=== PATIENT | male | born 1970 | race Caucasian/White ===

== ENCOUNTER 2017-07-31 08:27 | Observation (INO) | payer MEDICAID ==
[~2017-07-31] VITALS: Ht 172.7 cm; Wt 72.9 kg
[~2017-07-31 08:27] MED LIST: BUPR100T11 PO; BUPR100T8 PO; MULT-750 PO; OLAN2.5T10 PO; OLAN5TAB9 PO
[2017-07-31 09:02] LABS: BASOPHILS # (AUTO) 0.06 x10^3/uL (0-0.1); BASOPHILS % (AUTO) 1 % (0-1); EOSINOPHILS # (AUTO) 0.06 x10^3/uL (0-0.4); EOSINOPHILS % (AUTO) 1 % (1-7); LYMPHOCYTES # (AUTO) 2.55 x10^3/uL (1-3.4); LYMPHOCYTES % (AUTO) 32 % (22-44); MD NO; MEAN CORPUSCULAR HEMOGLOBIN 29.5 pg (27.5-34.5); MEAN CORPUSCULAR VOLUME 86.7 fL (81-97); MEAN PLATELET VOLUME 7.9 fL (7.4-10.4); MONOCYTES # (AUTO) 0.62 x10^3/uL (0.2-0.8); MONOCYTES % (AUTO) 8 % (2-9); NEUTROPHILS # (AUTO) 4.68 x10^3/uL (1.8-6.8); NEUTROPHILS % (AUTO) 59 % (42-75); PLATELET COUNT 212 x10^3/uL (130-400); RED BLOOD COUNT 5.34 x10^6/uL (4.38-5.82); RED CELL DISTRIBUTION WIDTH 14.4 % (9.4-14.8)
[2017-07-31 09:15] LABS: ALANINE AMINOTRANSFERASE 85 U/L (12-78); ALBUMIN 3.9 g/dL (3.4-5.0); ANION GAP 10 mmol/L (5-15); CALCIUM 8.6 mg/dL (8.5-10.1); CHLORIDE 102 mmol/L (98-107); SALICYLATE LEVEL 1.8 mg/dL (2.8-20.0)
[2017-07-31 09:17] LABS: ALKALINE PHOSPHATASE 111 U/L (45-117); BILIRUBIN,TOTAL 1.2 mg/dL (0.2-1.0); TOTAL PROTEIN 7.8 g/dL (6.4-8.2)
[2017-07-31 09:19] LABS: ACETAMINOPHEN < 2 mcg/mL (10-30)
[2017-07-31] MEDS ORDERED: HALOPERIDOL 5 MG/ML ONE (09:59)
[2017-07-31] MEDS ORDERED: HALOPERIDOL 5 MG/ML IM ONE (10:00)
[2017-07-31] MEDS ORDERED: LORazepam 2 MG/ML, 1ML ONE (12:47)
[2017-07-31] MEDS ORDERED: LORazepam 2 MG/ML, 1ML IM ONE (13:00)
[2017-07-31 13:04] LABS: AMPHETAMINE SCREEN, URINE Positive (Negative); BARBITURATE SCREEN, URINE Negative (Negative); BENZODIAZEPINE SCREEN, URINE Negative (Negative); CANNABINOID SCREEN, URINE Negative (Negative); COCAINE SCREEN, URINE Negative (Negative); METHADONE SCREEN, URINE Negative (Negative); OPIATE SCREEN, URINE Negative (Negative)
[2017-07-31] MEDS ORDERED: ZIPR20CA2 PO (13:06)
[2017-07-31] MEDS ORDERED: HALO5TAB5 PO (13:06)
[2017-07-31] MEDS ORDERED: MONT10TA9 PO (13:06)
[2017-07-31] MEDS ORDERED: CYCL-259 PO (13:06)
[2017-07-31] MEDS ORDERED: SIMV20TA3 PO (13:06)
[2017-07-31] MEDS ORDERED: PROP20TA PO (13:06)
[2017-07-31] MEDS ORDERED: BENZTROPINE 1 MG TABLET PO PRN (14:00)
[2017-07-31] MEDS ORDERED: LORazepam 1MG TABLET PO PRN ×2 (14:00)
[2017-07-31] MEDS ORDERED: THIAMINE 100MG TABLET ONE (14:24)
[2017-07-31] MEDS ORDERED: ENOXAPARIN 40 MG/0.4 ML ONE (14:24)
[2017-07-31] MEDS: ENOXAPARIN 40 MG/0.4 ML SQ SCH (14:37)
[2017-07-31] MEDS: THIAMINE 100MG TABLET PO SCH (14:37)
[2017-07-31] MEDS ORDERED: LORazepam 1MG TABLET ONE ×2 (16:05→20:19)
[2017-07-31] MEDS: LORazepam 1MG TABLET PO PRN ×2 (16:09→20:25)
[2017-07-31] MEDS ORDERED: CYCLOBENZAPRINE 10 MG TABLET ONE (20:13)
[2017-07-31] MEDS ORDERED: HALOPERIDOL 5 MG TABLET PO SCH (21:00)
[2017-07-31] MEDS: PROPRANOLOL 20 MG TABLET PO SCH (21:27)
[2017-07-31] MEDS: CYCLOBENZAPRINE 10 MG TABLET PO SCH (21:27)
[2017-07-31] MEDS: SIMVASTATIN 20 MG TABLET PO SCH (21:27)
[2017-08-01 05:17] LABS: ANION GAP 8 mmol/L (5-15); CALCIUM 8.5 mg/dL (8.5-10.1); CHLORIDE 105 mmol/L (98-107); CREATININE 0.94 mg/dL (0.7-1.3)
[2017-08-01 05:18] LABS: ALANINE AMINOTRANSFERASE 72 U/L (12-78); ALBUMIN 3.3 g/dL (3.4-5.0)
[2017-08-01 05:20] LABS: ALKALINE PHOSPHATASE 91 U/L (45-117); BILIRUBIN,TOTAL 1.8 mg/dL (0.2-1.0); TOTAL PROTEIN 6.7 g/dL (6.4-8.2)
[2017-08-01] MEDS ORDERED: LORazepam 0.5MG TABLET ONE (05:46)
[2017-08-01] MEDS: LORazepam 0.5MG TABLET PO PRN ×2 (05:48→22:32)
[2017-08-01] MEDS ORDERED: THIAMINE 100MG TABLET ONE (11:22)
[2017-08-01] MEDS ORDERED: ZIPRASIDONE 20MG CAPSULE ONE (11:22)
[2017-08-01] MEDS ORDERED: LORazepam 1MG TABLET ONE (11:25)
[2017-08-01] MEDS: THIAMINE 100MG TABLET PO SCH (11:33)
[2017-08-01] MEDS: ZIPRASIDONE 20MG CAPSULE PO SCH ×2 (11:34→17:35)
[2017-08-01] MEDS: LORazepam 1MG TABLET PO PRN ×4 (11:34→20:07)
[2017-08-01] MEDS: MULTIVIT.W/IRON, MINERALS ORAL SOL PO SCH (12:07)
[2017-08-01] MEDS: FOLIC ACID 1 MG TABLET PO SCH (12:07)
[2017-08-01] MEDS: PROPRANOLOL 20 MG TABLET PO SCH ×2 (12:07→20:06)
[2017-08-01] MEDS: MONTELUKAST 10 MG TABLET PO SCH (12:07)
[2017-08-01 12:50] VITALS: BP 145/91
[2017-08-01] MEDS: GABAPENTIN 100 MG CAPSULE PO SCH ×2 (15:32→20:06)
[2017-08-01] MEDS: ENOXAPARIN 40 MG/0.4 ML SQ SCH (15:39)
[2017-08-01 17:42] VITALS: BP 123/87
[2017-08-01 20:00] VITALS: BP 118/81
[2017-08-01] MEDS ORDERED: SIMVASTATIN 40 MG TABLET ONE (20:01)
[2017-08-01] MEDS: CYCLOBENZAPRINE 10 MG TABLET PO SCH (20:06)
[2017-08-01] MEDS: HALOPERIDOL 1 MG TABLET PO SCH (20:06)
[2017-08-01] MEDS: SIMVASTATIN 20 MG TABLET PO SCH (20:09)
[2017-08-01 22:00] VITALS: BP 109/72
[2017-08-02 03:54] VITALS: BP 122/85
[2017-08-02 08:20] VITALS: BP 128/87
[2017-08-02] MEDS: GABAPENTIN 100 MG CAPSULE PO SCH ×3 (08:44→20:49)
[2017-08-02] MEDS: ZIPRASIDONE 20MG CAPSULE PO SCH ×2 (08:45→17:00)
[2017-08-02] MEDS: FOLIC ACID 1 MG TABLET PO SCH (08:45)
[2017-08-02] MEDS: PROPRANOLOL 20 MG TABLET PO SCH ×2 (08:45→20:49)
[2017-08-02] MEDS: LORazepam 1MG TABLET PO PRN ×2 (08:45→12:11)
[2017-08-02] MEDS: MONTELUKAST 10 MG TABLET PO SCH (08:46)
[2017-08-02] MEDS: THIAMINE 100MG TABLET PO SCH (08:46)
[2017-08-02] MEDS: MULTIVIT.W/IRON, MINERALS ORAL SOL PO SCH (08:48)
[2017-08-02] MEDS: ENOXAPARIN 40 MG/0.4 ML SQ SCH (16:00)
[2017-08-02 16:20] VITALS: BP 121/81
[2017-08-02] MEDS: LORazepam 0.5MG TABLET PO PRN (16:28)
[2017-08-02 19:49] VITALS: BP 118/84
[2017-08-02] MEDS: HALOPERIDOL 1 MG TABLET PO SCH (20:49)
[2017-08-02] MEDS: CYCLOBENZAPRINE 10 MG TABLET PO SCH (20:49)
[2017-08-02] MEDS: SIMVASTATIN 20 MG TABLET PO SCH (20:50)
[2017-08-03 04:51] VITALS: BP 113/73
[2017-08-03 08:01] VITALS: BP 123/83
[2017-08-03] MEDS: FOLIC ACID 1 MG TABLET PO SCH (08:16)
[2017-08-03] MEDS: GABAPENTIN 100 MG CAPSULE PO SCH ×3 (08:16→20:11)
[2017-08-03] MEDS: ZIPRASIDONE 20MG CAPSULE PO SCH ×2 (08:16→16:32)
[2017-08-03] MEDS: PROPRANOLOL 20 MG TABLET PO SCH ×2 (08:16→20:11)
[2017-08-03] MEDS: MULTIVIT.W/IRON, MINERALS ORAL SOL PO SCH (08:16)
[2017-08-03] MEDS: THIAMINE 100MG TABLET PO SCH (08:16)
[2017-08-03] MEDS: MONTELUKAST 10 MG TABLET PO SCH (08:16)
[2017-08-03 12:03] VITALS: BP 121/86
[2017-08-03] MEDS: LORazepam 0.5MG TABLET PO PRN (12:07)
[2017-08-03] MEDS: ENOXAPARIN 40 MG/0.4 ML SQ SCH (16:07)
[2017-08-03 18:16] VITALS: BP 116/91
[2017-08-03] MEDS: LORazepam 1MG TABLET PO PRN (18:21)
[2017-08-03 19:45] VITALS: BP 104/73
[2017-08-03] MEDS: HALOPERIDOL 1 MG TABLET PO SCH (20:11)
[2017-08-03] MEDS: SIMVASTATIN 20 MG TABLET PO SCH (20:11)
[2017-08-03] MEDS: CYCLOBENZAPRINE 10 MG TABLET PO SCH (20:11)
[2017-08-04 08:01] VITALS: BP 117/79
[2017-08-04] MEDS: THIAMINE 100MG TABLET PO SCH (08:13)
[2017-08-04] MEDS: MONTELUKAST 10 MG TABLET PO SCH (08:13)
[2017-08-04] MEDS: ZIPRASIDONE 20MG CAPSULE PO SCH ×2 (08:13→16:38)
[2017-08-04] MEDS: GABAPENTIN 100 MG CAPSULE PO SCH (08:13)
[2017-08-04] MEDS: FOLIC ACID 1 MG TABLET PO SCH (08:13)
[2017-08-04] MEDS: PROPRANOLOL 20 MG TABLET PO SCH ×2 (08:13→20:51)
[2017-08-04] MEDS: MULTIVIT.W/IRON, MINERALS ORAL SOL PO SCH (08:18)
[2017-08-04 11:47] VITALS: BP 132/92
[2017-08-04] MEDS: LORazepam 0.5MG TABLET PO PRN (11:51)
[2017-08-04] MEDS: ENOXAPARIN 40 MG/0.4 ML SQ SCH (16:06)
[2017-08-04] MEDS: GABAPENTIN 400 MG CAPSULE PO SCH ×2 (16:06→20:51)
[2017-08-04 19:31] VITALS: BP 114/78
[2017-08-04] MEDS: BENZTROPINE 1 MG TABLET PO SCH (20:51)
[2017-08-04] MEDS: SIMVASTATIN 20 MG TABLET PO SCH (20:51)
[2017-08-04] MEDS: HALOPERIDOL 1 MG TABLET PO SCH (20:52)
[2017-08-04] MEDS: CYCLOBENZAPRINE 10 MG TABLET PO SCH (20:52)
[2017-08-04] MEDS: LORazepam 1MG TABLET PO PRN (22:30)
[2017-08-05 08:26] VITALS: BP 108/78
[2017-08-05] MEDS: THIAMINE 100MG TABLET PO SCH (08:32)
[2017-08-05] MEDS: MONTELUKAST 10 MG TABLET PO SCH (08:32)
[2017-08-05] MEDS: PROPRANOLOL 20 MG TABLET PO SCH ×2 (08:32→20:17)
[2017-08-05] MEDS: FOLIC ACID 1 MG TABLET PO SCH (08:32)
[2017-08-05] MEDS: MULTIVIT.W/IRON, MINERALS ORAL SOL PO SCH (08:32)
[2017-08-05] MEDS: ZIPRASIDONE 20MG CAPSULE PO SCH ×2 (08:33→16:28)
[2017-08-05] MEDS: BENZTROPINE 1 MG TABLET PO SCH ×2 (08:33→21:00)
[2017-08-05] MEDS: GABAPENTIN 400 MG CAPSULE PO SCH ×3 (08:36→20:17)
[2017-08-05 11:19] VITALS: BP 106/70
[2017-08-05] MEDS: ENOXAPARIN 40 MG/0.4 ML SQ SCH (16:00)
[2017-08-05 17:26] VITALS: BP 123/84
[2017-08-05] MEDS: LORazepam 0.5MG TABLET PO PRN (17:29)
[2017-08-05] MEDS: CYCLOBENZAPRINE 10 MG TABLET PO SCH (20:17)
[2017-08-05] MEDS: HALOPERIDOL 1 MG TABLET PO SCH (20:17)
[2017-08-05] MEDS: SIMVASTATIN 20 MG TABLET PO SCH (20:18)
[2017-08-05 20:19] VITALS: BP 107/73
[2017-08-05] MEDS ORDERED: GABAPENTIN 400 MG CAPSULE PO SCH (21:00)
[2017-08-06 07:32] VITALS: BP 108/76
[2017-08-06] MEDS: THIAMINE 100MG TABLET PO SCH (08:22)
[2017-08-06] MEDS: FOLIC ACID 1 MG TABLET PO SCH (08:22)
[2017-08-06] MEDS: MULTIVIT.W/IRON, MINERALS ORAL SOL PO SCH (08:22)
[2017-08-06] MEDS: PROPRANOLOL 20 MG TABLET PO SCH (08:22)
[2017-08-06] MEDS: GABAPENTIN 400 MG CAPSULE PO SCH (08:22)
[2017-08-06] MEDS: MONTELUKAST 10 MG TABLET PO SCH (08:22)
[2017-08-06] MEDS: ZIPRASIDONE 20MG CAPSULE PO SCH (08:23)
[2017-08-06] MEDS: BENZTROPINE 1 MG TABLET PO SCH (08:23)
== END 2017-08-06 10:48 | disposition home or self-care (01) ==
LOC: ED 08:46 → EDIP 13:10 → 2N 08-01 12:37
PROVIDERS: ADMIT Internal Medicine; ATTEND Internal Medicine
DX: R45.851 Suicidal ideations (principal); F25.1 Schizoaffective disorder, depressive type; E78.5 Hyperlipidemia, unspecified; K76.0 Fatty (change of) liver, not elsewhere classified; F15.10 Other stimulant abuse, uncomplicated; F10.229 Alcohol dependence with intoxication, unspecified; F17.210 Nicotine dependence, cigarettes, uncomplicated; Z81.8 Family history of other mental and behavioral disorders
CPT/HCPCS: 36415; 76700; 80053; 80307; 80329; 83735; 85025; 93005; 96372; 99285; G0378; J1630; J1650; J2060; G0480